=== PATIENT | male | born 1975 | race Caucasian/White ===

== ENCOUNTER 2018-01-17 02:26 | Emergency (ER) | payer SELFPAY ==
--- NOTE | 2018-01-17 13:06 | CT ---
HEAD CT NONCONTRAST: INDICATION: Fall with head injury. FINDINGS: There is no evidence of intracranial hemorrhage, mass effect, midline shift, or ventriculomegaly. Ca lvarium is intact. IMPRESSION: No acute intracranial hemorrhage or mass effect. POS: [facility]
--- NOTE | 2018-01-17 13:13 | CT ---
CERVICAL SPINE CT NONCONTRAST: HISTORY: Fall with neck pain. FINDINGS: Craniocervical junction is intact. There is o evidence of fracture or subluxation of the cervical sp ine. Vertebral body heights and alignment are maintained. IMPRESSION: No acute osseous abnormality of the cervical spine. POS: [facility]
== END 2018-01-17 11:38 | disposition home or self-care (01) ==
LOC: ERS 02:26
DX: S01.01XA Laceration without foreign body of scalp, initial encounter (principal); Y00.XXXA Assault by blunt object, initial encounter
CPT/HCPCS: 12001; 70450; 72125